=== PATIENT | male | born 1990 | race Caucasian/White ===

== ENCOUNTER 2020-08-09 21:35 | Emergency (ER) | payer BC ==
[~2020-08-09] VITALS: Ht 190.5 cm; Wt 106.6 kg
--- NOTE | 2020-08-09 22:01 | NUR ---
Patient back from CT in stable condition.
--- NOTE | 2020-08-09 22:18 | NUR ---
Patient discharged to home in stable condition. Written and verbal after care instructions given. Patient verbalizes understanding of instructions. Stressed follow up or return to ER for worsening s/s. Ambulated from ER with stable gait. All belongings with patient.
[2020-08-09 22:19] VITALS: BP 127/81
[2020-08-09] MEDS ORDERED: ONDANSETRON 4 MG/2 ML VIAL IV ONE (22:30)
[2020-08-09] MEDS ORDERED: KETOROLAC TROMETHAMINE 15 MG INJ IVP ONE (22:30)
[2020-08-09] MEDS ORDERED: IV NS 1000 ML 1,000 ML IV ONE (22:30)
== END 2020-08-09 22:24 | disposition home or self-care (01) ==
LOC: ER 21:37
DX: S06.0X0A Concussion without loss of consciousness, initial encounter (principal); W17.89XA Other fall from one level to another, initial encounter; Y93.23 Activity, snow (alpine) (downhill) skiing, snowboarding, sledding, tobogganing and snow tubing; Y92.89 Other specified places as the place of occurrence of the external cause; Y99.8 Other external cause status; R40.2142 Coma scale, eyes open, spontaneous, at arrival to emergency department; R40.2362 Coma scale, best motor response, obeys commands, at arrival to emergency department; R40.2252 Coma scale, best verbal response, oriented, at arrival to emergency department
CPT/HCPCS: 70450; A4663